=== PATIENT | female | born 1965 | race Caucasian/White ===

== ENCOUNTER 2017-04-25 07:04 | Day surgery (SDC) | payer OTHER ==
--- NOTE | 2017-04-08 06:56 | HP ---
PREOPERATIVE HISTORY AND PHYSICAL: DATE OF ADMISSION/SURGERY: 04/25/17 - [facility] DATE OF OFFICE VISIT/ENCOUNTER: 04/07/17 ATTENDING PHYSICIAN: Pilar Rodriguez MD (DICTATED BY RILEY HECK) PROCEDURE: Right wrist ganglion cyst excision. CHIEF COMPLAINT: Cyst, right wrist. HISTORY OF PRESENT ILLNESS: This is a 52-year-old female, who complains of painful mass on the volar radial aspect of her right wrist. This has been present for approximately a month. She does not recall any injury. It is quite bothersome and she has difficulty doing anything with her right hand that the cyst does not cause discomfort. She is interested in surgical intervention at this time to remove the cyst. PAST MEDICAL HISTORY: 1. Hypertension. 2. History of heart murmur. 3. Scoliosis. PAST SURGICAL HISTORY: None. CURRENT MEDICATIONS: 1. Acetaminophen extra strength 500 mg 1 tab b.i.d. p.r.n. 2. Amlodipine besylate 10 mg daily. 3. Calcium plus vitamin D daily. 4. Celebrex 200 mg 1 tab once or twice a day p.r.n. 5. Citalopram hydrobromide 20 mg daily. 6. Eloise-C. 7. Fish oil. 8. Lisinopril 5 mg daily. 9. Loratadine. 10. Multivitamin daily. 11. sodium 40 mg daily. ALLERGIES: AMOXICILLIN causes hives. FAMILY MEDICAL HISTORY: Diabetes, atrial fibrillation, COPD. 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 She denies tobacco use, recreational drug use, and alcohol use. REVIEW OF SYSTEMS: General: Negative for fevers, chills, or night sweats. No known anesthesia problems. HEENT: Negative for headache, lightheadedness, or syncopal episodes. Integumentary: Negative for abrasions, lesions, or open wounds. Cardiothoracic: Positive for hypertension. Negative for chest pain, palpitations, or edema. Pulmonary: Negative for shortness of breath with exertion, chronic cough, COPD. GI: Negative for nausea, vomiting, diarrhea, constipation, or GERD. : Negative for nocturia, urinary frequency, urgency, history of UTIs, or kidney problems. Musculoskeletal: Positive for current complaint. Positive for back pain related to scoliosis. Neurological: Negative for paresthesias, numbness, history of seizure, stroke, or epilepsy. Endocrine: Negative for diabetes or thyroid issues. Hematologic: Negative for easy bruising, anemia, excessive bleeding, or history of DVT. Infectious Disease: Negative for history of MRSA, hepatitis C, or HIV. PHYSICAL EXAMINATION GENERAL: Well-developed, well-nourished, 52-year-old female in no acute distress. VITAL SIGNS: Height 5 feet 5 inches, weight 271 pounds, pulse rate 72, blood pressure 132/90. HEENT: Normocephalic, atraumatic. Pupils are equal, round, and reactive to light and accommodation. Extraocular movements are intact. NECK: Supple. No palpable lymph nodes. Throat is clear. PULMONARY: Lungs are clear to auscultation bilaterally. No wheezes, rales, or rhonchi. CARDIOVASCULAR: Regular rate and rhythm. S1, S2. No murmurs are detected. No rubs or gallops. No edema. ABDOMEN: Positive bowel sounds. Soft, nontender. NEUROLOGIC: Alert and oriented x3. Cranial nerves II through XII are intact. Sensation is intact to light touch. PERIPHERAL VASCULAR: 2+ radial and ulnar pulses. Negative Ruslan test. MUSCULOSKELETAL: On exam of her right wrist, there is tenderness on the volar radial aspect about 1 cm in diameter. She has full range of motion of the wrist with flexion and extension. She can make a full fist. Her neurovascular function is intact and skin is intact. DIAGNOSTIC STUDIES: X-rays: AP, lateral, and oblique x-rays of the right wrist appear normal except for some CMC joint arthritis of the right thumb. ASSESSMENT: Right volar wrist ganglion. PLAN: The patient is scheduled to undergo a right wrist ganglion cyst excision with Dr. Rodriguez on 04/25/17. She will return to the office 10 to 14 days postop for followup and suture removal. A prescription for Ultracet was e-scribed to the patient's pharmacy for postoperative pain management. RILEY HECK [id number]/[facility] #: [id number] MICHELLE
[~2017-04-25 07:04] MED LIST: Buffered Lidocaine 0.9% SYRIN* 5 ML/SYR SYRINGE INTRADERM ONE
[2017-04-25] MEDS ORDERED: ceFAZolin 2 GM PREMIX(*) 0 GM/0 ML BAG IVPB ONE (07:18)
[2017-04-25] MEDS ORDERED: Buffered Lidocaine 0.9% SYRIN* 5 ML/SYR SYRINGE ONE (07:18)
[2017-04-25] MEDS ORDERED: Lidocaine 1% INJ* 10 MG/ML 30 ML SDV ONE (08:05)
[2017-04-25] MEDS ORDERED: fentaNYL* 50 MCG/ML 2 ML VIAL (100 MCG VIAL) ONE (08:18)
[2017-04-25] MEDS ORDERED: Midazolam* 1 MG/ML 2 ML VIAL (2 MG) ONE (08:23)
[2017-04-25 08:58] VITALS: BP 138/72
--- NOTE | 2017-04-25 23:37 | OP ---
CC: Pilar Rodriguez MD OPERATIVE NOTE: DATE OF OPERATION: 04/25/17 DATE OF : 69 SURGEON: Pilar oRdriguez MD CROTCH BREAKER: RILEY Melton ANESTHESIA: Local MAC. PRE-OP DIAGNOSIS: Volar wrist ganglion on the right. POST-OP DIAGNOSIS: Volar wrist ganglion on the right. OPERATIVE PROCEDURE: Removal of wrist ganglion on the right. ESTIMATED BLOOD LOSS: Zero. TOURNIQUET TIME: About 10 minutes. INDICATION FOR PROCEDURE: Korina is a 52-year-old female with a painful mass on the volar radial as pect of her right wrist. She presents for removal of the mass. Clinically, it is a ganglion cyst. DESCRIPTION OF PROCEDURE: The patient was brought to the operating room, was given a sedation anest hetic and a local infiltration with 10 cc of 1% plain lidocaine overlying the right wrist mass. Ski n of her right hand and forearm was prepped and draped in the usual sterile fashion. The hand and f orearm were exsanguinated and tourniquet elevated to 250 mmHg. A Chevron incision was made centered over the mass. We dissected bluntly through the subcutaneous tissue. The radial artery was carefu lly dissected away from the mass and the mass was traced with its stalk down to the radiocarpal join t, was removed with a small portion of the joint capsule and the edges of the capsule were cauterize d with a Bovie. The wound was irrigated and the skin edges reapproximated with 4-0 nylon suture. T he wound was dressed with Xeroform, 4x4, Webril, and an Frandy wrap. The patient tolerated the procedu re well and was brought to the recovery room in good condition. [id number]/[facility] #: [id number]
== END 2017-04-25 09:19 | disposition home or self-care (01) ==
LOC: OREAST 07:04
PROVIDERS: ATTEND Orthopaedic Surgery
DX: M67.431 Ganglion, right wrist (principal); I10 Essential (primary) hypertension; R01.1 Cardiac murmur, unspecified
CPT/HCPCS: 88304; J0690; J2001; J2250; J3010

== ENCOUNTER 2017-08-18 05:53 | Inpatient (IN) | payer OTHER ==
--- NOTE | 2017-08-01 09:54 | HP ---
HISTORY AND PHYSICAL: DATE OF ADMISSION/SURGERY: 08/18/17 DATE OF OFFICE VISIT: 07/28/17 ATTENDING PHYSICIAN: Subhash Montilla MD * (DICTATION BY RILEY STEVENSON) PROCEDURE: Right total shoulder arthroplasty. CHIEF COMPLAINT: Right shoulder pain. HISTORY OF PRESENT ILLNESS: The patient is a very pleasant 52-year-old female, who presents today for evaluation of her right shoulder pain. The patient has very specific osteoarthritic changes of the shoulder, where she has bone-on- bone in the glenohumeral joint and she has had pain for several years, which is worsening and has elected to undergo a right shoulder replacement by Dr. Montilla on 08/18/17. PAST MEDICAL HISTORY: 1. Right shoulder osteoarthritis. 2. Hypertension. 3. Scoliosis. PAST SURGICAL HISTORY: Ganglion cyst removal, 04/07/17. CURRENT MEDICATIONS: 1. Acetaminophen extra strength 500 mg 1 tablet b.i.d. p.r.n. 2. Amlodipine 10 mg daily. 3. Calcium with vitamin D supplementation daily. 4. Celebrex 200 mg 1 tablet once or twice a day p.r.n. 5. Citalopram 20 mg daily. 6. Eloise-C daily. 7. Fish oil supplementation daily. 8. Lisinopril 5 mg p.o. daily. 9. Loratadine. 10. Daily multivitamin. 11. Propranolol 40 mg daily. ALLERGIES: AMOXICILLIN, which causes hives. FAMILY MEDICAL HISTORY: Mother of diabetes, atrial fibrillation, COPD and heart murmur. 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 She denies tobacco use, recreational drug use, and alcohol use. REVIEW OF SYSTEMS: General: No fevers, chills, or night sweats. No difficulty with anesthesia. HEENT: Negative for headache, lightheadedness, or syncopal episodes. Integumentary: Negative for abrasions, lesions, open wounds , or sores. Cardiothoracic: Positive for hypertension. Negative for chest pain , palpitations, or edema. No history of heart murmur. Pulmonary: Negative for shortness of breath, chronic cough, or COPD. GI: Negative for nausea, vomiting, constipation, diarrhea, and positive for GERD. : Negative for nocturia, urinary frequency, urgency, history of UTIs, or kidney problems. Musculoskeletal: Positive for right shoulder pain. Positive for back pain, chronic, due to scoliosis. Positive for left foot pain. Neurological: Negative for paresthesias, numbness, history of seizure, stroke, or epilepsy. Endocrine: Negative for diabetes or thyroid issues. Hematologic: Negative for easy bruising, anemia, excessive bleeding. No history of DVT or bleeding disorders. Infectious Disease: Negative for MRSA, hepatitis C, or HIV. PHYSICAL EXAMINATION GENERAL: Well appearing, in no acute distress. Alert and oriented. VITAL SIGNS: Height 55 inches, weight 288 pounds, pulse 76, blood pressure 124/ 84, respirations 20, temperature 97.8, BMI 47.9. HEENT: Normocephalic, atraumatic. EOMI. NECK: Supple, full range of motion. PULMONARY: Lungs clear to auscultation bilaterally. No crackles, rhonchi or wheezes. CARDIOVASCULAR: Regular rate and rhythm. Normal Sl, S2. No murmurs, gallops or rubs. ABDOMEN: Soft, nontender, nondistended. NEUROLOGIC: Alert and oriented. Cranial nerves grossly intact. Sensation intact to light touch bilateral lower and upper extremities. PERIPHERAL VASCULAR: 2+ radial and ulnar pulses. MUSCULOSKELETAL: Tenderness with palpation over the right shoulder. Please see Dr. Montilla's dictated note for full shoulder examination. DIAGNOSTIC STUDIES: X-rays of the right shoulder were taken today, which showed the patient is [id number] without significant changes from her x-rays 2 years ago. IMPRESSION: Right should arthritis. PLAN: The patient is scheduled to undergo a right total shoulder replacement by Dr. Montilla on 08/18/17. She will return postoperatively in approximately 2 weeks for evaluation. The patient has not taken narcotics in the past, so no scripts were sent ahead of time for the patient. She will undergo preoperative testing with her primary care physician as well as PAT testing at the hospital. She has no other questions or concerns; however, will call us if any do arise. RILEY STEVENSON [id number]/[facility] #: [id number] [facility] INSANEInessa
[2017-08-18] MEDS ORDERED: Buffered Lidocaine 0.9% SYRIN* 5 ML/SYR SYRINGE INTRADERM ONE (06:00)
[2017-08-18] MEDS ORDERED: Gabapentin CAP(*) 300 MG PO ONE (06:00)
[2017-08-18] MEDS ORDERED: Famotidine IV* 10 MG/ML 2 ML (20 mg) IV ONE (06:00)
[2017-08-18] MEDS ORDERED: Gabapentin CAP(*) 300 MG ONE (06:01)
[2017-08-18] MEDS ORDERED: Clindamycin 900 MG IVPREMIX(* 900 MG/50 ML SDV IV ONE (06:01)
[2017-08-18] MEDS ORDERED: Famotidine IV* 10 MG/ML 2 ML (20 mg) ONE (06:01)
[2017-08-18] MEDS ORDERED: Buffered Lidocaine 0.9% SYRIN* 5 ML/SYR SYRINGE ONE (06:01)
[2017-08-18] MEDS ORDERED: Bupivacaine 0.5% SDV PF* 30 ML VIAL ONE (07:11)
[2017-08-18] MEDS ORDERED: Midazolam* 1 MG/ML 5 ML VIAL (5 MG) ONE (07:18)
[2017-08-18] MEDS ORDERED: fentaNYL* 50 MCG/ML 2 ML VIAL (100 MCG VIAL) ONE ×2 (07:18→08:30)
[2017-08-18] MEDS ORDERED: Oxymetazoline 0.05% NASAL SPR* 15 ML BTL ONE (07:41)
[2017-08-18] MEDS ORDERED: KETAMINE HCL* 50 MG/ML 10 ML VIAL ONE (08:20)
[2017-08-18] MEDS ORDERED: Ketorolac INJ* 30 MG/ML 1 ML VIAL ONE (08:33)
[2017-08-18] MEDS ORDERED: Propofol* 10 MG/ML 20 ML BTL IV PUSH ONE (08:33)
[2017-08-18] MEDS ORDERED: DiMENhydriNATE IV* 50 MG/ML VIAL ONE (08:33)
[2017-08-18] MEDS ORDERED: Ondansetron INJ* 2 MG/ML VIAL ONE (08:33)
[2017-08-18] MEDS ORDERED: ROPIVACAINE 5 MG/ML 30 ML BTL (0.5%) ONE (08:33)
[2017-08-18] MEDS ORDERED: Glycopyrrolate IV* 0.2 MG/ML 1 ML VIAL ONE (08:33)
[2017-08-18] MEDS ORDERED: Succinylcholine* 20 MG/ML 10 ML VIAL ONE (08:33)
[2017-08-18] MEDS ORDERED: Lidocaine 2% PF * 5 ML VIAL ONE (08:33)
[2017-08-18] MEDS ORDERED: Dexamethasone IV* 4 MG/ML 1 ML (4 MG) ONE (08:33)
[2017-08-18] MEDS ORDERED: Bupivacaine 0.25% EPI 200,000* 30 ML SDV ONE (08:35)
[2017-08-18] MEDS ORDERED: Levalbuterol HFA INHALER* 1 PUFF MDI ONE (08:36)
[2017-08-18] MEDS ORDERED: HYDROmorphone INJ* 1 MG/ML CARPUJECT SYRINGE IV PRN (09:08)
[2017-08-18] MEDS ORDERED: oxyCODONE TAB* 5 MG TAB PO PRN ×2 (09:08→11:19)
[2017-08-18] MEDS ORDERED: Levalbuterol 0.63MG/3ML NEB* UNIT OF USE INH PRN (09:08)
[2017-08-18] MEDS ORDERED: DiMENhydriNATE IV* 50 MG/ML VIAL IV PUSH PRN (09:08)
[2017-08-18] MEDS ORDERED: Acetaminophen TAB* 325 MG PO PRN (09:08)
[2017-08-18] MEDS ORDERED: Gabapentin CAP(*) 100 MG PO ONE (09:10)
[2017-08-18] MEDS ORDERED: Gabapentin CAP(*) 100 MG ONE (10:55)
[2017-08-18] MEDS ORDERED: traZODone TAB* 50 MG TAB PO PRN (11:19)
[2017-08-18] MEDS ORDERED: diPHENhydraMINE IV* 50 MG/ML 1 ml VIAL (BENADRYL) IV PRN (11:19)
[2017-08-18] MEDS ORDERED: oxyCODONE/Acetamin 5/325 MG* TAB PO PRN (11:19)
[2017-08-18] MEDS ORDERED: Ondansetron INJ* 2 MG/ML VIAL IV PRN (11:19)
--- NOTE | 2017-08-18 13:02 | RAD ---
INDICATION: Right shoulder arthroplasty COMPARISON: July 23, 2017 TECHNIQUE: AP and axillary views were obtained. FINDINGS: There is right shoulder arthroplasty. Both humeral and scapular components appear well seated. There are soft tissue changes compatible with the recent surgery. There is a cooling jacket. IMPRESSION: POSTOPERATIVE RIGHT SHOULDER ARTHROPLASTY
[2017-08-18] MEDS: Clindamycin 600 MG IVPREMIX(* 600 MG/50 ML SDV IV SCH ×2 (16:55→23:21)
[2017-08-18] MEDS: Heparin VIAL(*) 5000 UNITS/ML VIAL (FIVE THOUSAND) SUBCUT SCH (20:05)
[2017-08-18] MEDS: Docusate CAP* 100 MG PO SCH (20:05)
[2017-08-18] MEDS ORDERED: celeCOXIB CAP* 200 MG PO SCH (21:00)
[2017-08-18] MEDS: oxyCODONE/Acetamin 5/325 MG* TAB PO PRN (22:31)
[2017-08-19] MEDS: Morphine INJ* 2 MG/ML 1 ML SYRINGE (TWO MG - NEW SYRINGE VERSION) IV PRN ×3 (00:21→07:29)
--- NOTE | 2017-08-19 01:47 | OP ---
DATE OF OPERATION: 08/18/17 - ROOM #348 DATE OF : 69 SURGEON: Subhash Montilla MD ASSISTANTS: Stephie Rosas RPA and RILEY Gray ANESTHESIOLOGIST: Lyn Flynn MD ANESTHESIA: General and regional. PRE-OP DIAGNOSIS: Osteoarthritis, right shoulder. POST-OP DIAGNOSIS: Osteoarthritis, right shoulder. OPERATIVE PROCEDURE: Right total shoulder arthroplasty. ESTIMATED BLOOD LOSS: 150 cc. COMPLICATIONS: None. HARDWARE: OCAMPO 17 stem with medium trauma body, small reduced glenoid with liner, 44-mm humeral head with 2-mm eccentric adapter. SUMMARY: Mrs. Hays is a 52-year-old female who has had troubles with her right shoulder for many years now. It initially had been lower level and well controlled with anti-inflammatories the occasional injection, but over a year ago it had come to the point where we have talked about a shoulder replacement. 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 I discussed with her a total shoulder arthroplasty should work well to decrease her pain and improve her function. Risks of surgery such as neurovascular injury, scar formation, stiffness, continued pain, instability and hardware failure were some of the risks discussed. She had been declared medically optimized and wished to proceed. DESCRIPTION OF PROCEDURE: The patient had a scalene block placed in the holding area and came back to the OR. General endotracheal anesthesia was then established. She was then positioned on the edge of the table, so that her right arm could come over and I thought I would have good access to the humeral shaft. Several folded towels have been placed under the central portion of the bed, so that she would lay nicely on this and help let the shoulder rollback some. She was then sat up in the beach chair position and care was taken to make sure that her knees were nicely bent and that her left elbow cubital tunnel was free and clear of any pressure. Stephie Rosas was present from the start of the case with positioning and was relieved intra-operatively by Cora Harrell. The case could not have been done without an credit control assistant. Right shoulder area was prepped and then draped. Skin over the incisional area was infiltrated using 0.25% Marcaine with epinephrine and incision was made beginning superior to the coracoid at about the level of clavicle and came downwards towards the humeral shaft. Incision was carried down through the skin and subcutaneous fat. Small bleeders encountered were ligated using electrocautery. Fat was then bluntly dissected using a Varinder and fascia over the deltoid was exposed. Fat was cleared from a little bit medial to the incision and little bit lateral and at the very base, I had seen the cephalic vein. I then traced this upwards, dividing the deltoid away from the cephalic vein, so I could leave the cephalic vein medially and with blunt dissection, I was able to come under and exploit the deltopectoral interval. With coming upwards, fascia over the coracobrachialis was easily seen and fascia was taken down. Using a 2-0 Vicryl, the circumflex vessels were tied off and then ligated. With blunt dissection, the fascia was freed a little bit from the edge of the coracobrachialis, so that a narrow Staley could then be placed to get a little bit more exposure. With motion, it could be seen where the biceps tendon came up and dove into the shoulder and the rotator cuff was right along the side there. Osteotome was used to take off a flake of bone right on that medial side of the biceps tendon to allow for improved later repair. Rotator interval was developed over the top, so that the cuff could be peeled back and similarly was peeled inferiorly. Capsule was then released and quite a bit of clear joint fluid was encountered. With rotation and extension, head was then easily dislocated. She had complete wear of the humeral head with significant osteophyte formation. Using the awl, center of the head was opened and the intramedullary reamers were then placed. She had templated for a 14 to 15 and I started with a 14. She had easy play with the 14 and even the 15. The 16 seated easily, but the 17 had a nice workers compensation adjuster and I was very careful with it. Now we were go with assembled and adjusted it until the alignment axel was parallel with her arm and the cutting guide was then pinned into place. Humeral head was then resected. Nice cut was obtained and this was handed back , so that it could be measured against the trial heads. Cutting guide was removed and the humeral head protector was placed. Coming with the skin along the posterior glenoid and dropping the humeral head posteriorly, nice exposure of the glenoid was obtained. Similarly, pickle fork was then placed anteriorly and part of the labrum was taken down sharply. Biceps was delivered and it could be seen where the attachment was in good condition, but more proximally right at the curve, the biceps increased to more than twice its width with its degenerative changes. Biceps would be eventually cut and tenodesed using #1 Ethibond sutures. Coming back to the glenoid, marker was used to draw a perpendicular line and then a longitudinal line, so that the center could be seen. Using the guide, K-wire was placed right in the center and I liked the positioning. Using the sizer, I thought the small fit very nicely. The standard by templating completely filled the top to bottom, so I thought going with the small would be better. Reamer was then used to take down a little bit anteriorly as she did have a little retroversion from her posterior wear. Nice subchondral bone was exposed. Continuing with the K-wire as a guide, the short drill was then used for the central peg and guidewire was then removed. Glenoid was then impacted into place. Nice fit was obtained. Superior and inferior screw was placed and a wonderful bite was obtained with both screws. Glenoid was copiously pulse lavaged and the polyethylene was then snapped into place. Attention was returned to the proximal humerus. Cap was removed and trial stem was placed. Trial stems, they just a little bit proud and then she was trialed with a 44-mm head. She was reduced and now could easily externally rotate pass 90 degrees, come upwards and she had very good stability. Similarly, I was trying to shift the humeral head, I could get about 50% posteriorly, anteriorly as well a bit inferiorly as well. She seemed to be nice and stable. Trial instrumentation was removed and the stem was called for. Stem was assembled on the back table and then impacted into place. I thought we were sitting flush according to the handle, but when the head was placed, there was just about a millimeter of gap that could be seen. Considering though how snug she was with the 17, I was not drilled, which I had force the stem further, so this was allowed to remain. Eccentric head was also then impacted into place and she appeared to have perfect coverage of the humeral head. She had a same wonderful motion and stability. Subscapularis was then repaired to where I had taken the flake off of the lesser tuberosity. Portion of the biceps that I folded back down was also used as I pulled up the sutures, as I pushed the Ethibond needles through her bone. They were between the pulled up through the biceps and then I came back down into the biceps, so that there would be an additional amount of soft tissue that would be healing in. Nice repair was obtained. With the repair, she now came to about 60 degrees with the elbow tucked at her side, but this was much better than the 0 that she had preoperatively. With the arm abducted to 90 degrees, I could easily bring it to 90 degrees of external rotation and 90 degrees of internal rotation, she seems stable throughout. Wound was again copiously pulse lavaged. Cephalic vein was buried under the deltoid and the most inferior portion was allowed to remain to allow for future reference and just in case this was needed. Subcutaneous tissues were reapproximated with 2-0 Vicryl. Skin was closed using a running Monocryl PDS. Sterile dressing, Cryo/Cuff and a sling roll applied in the OR. The patient then was extubated in the OR and was stable on transfer to the recovery room. [id number]/[facility] #: [id number] MICHELLE
[2017-08-19] MEDS ORDERED: Ketorolac INJ* 15 MG/ML 1 ML VIAL IV PUSH PRN (02:38)
[2017-08-19] MEDS ORDERED: oxyCODONE TAB* 5 MG TAB PO ONE (03:00)
[2017-08-19 07:04] LABS: Hematocrit 35 % (35-47); Hemoglobin 12.2 g/dl (12.0-16.0)
[2017-08-19 07:17] LABS: BUN/Creatinine Ratio 16.9 (8-20); Calcium 7.8 mg/dL (8.6-10.3); EGFR Non-African American 79.3 (>60); Potassium 3.9 mmol/L (3.5-5.0)
[2017-08-19] MEDS: Clindamycin 600 MG IVPREMIX(* 600 MG/50 ML SDV IV SCH (07:28)
[2017-08-19] MEDS: oxyCODONE/Acetamin 5/325 MG* TAB PO PRN ×2 (07:28→11:51)
[2017-08-19] MEDS ORDERED: Omeprazole CAP* 20 MG PO SCH (07:30)
[2017-08-19] MEDS: Heparin VIAL(*) 5000 UNITS/ML VIAL (FIVE THOUSAND) SUBCUT SCH (07:37)
[2017-08-19] MEDS: Docusate CAP* 100 MG PO SCH (07:37)
--- NOTE | 2017-08-19 08:47 | PN ---
Progress Note - Progress Note Date of Service: 08/18/17 SOAP: Subjective: resting comfortably; pain controlled with PO meds, no complaints Objective: Vital Signs Temp Pulse Resp BP Pulse Ox 98.2 F 58 16 111/56 95 08/19/17 03:18 08/19/17 03:18 08/19/17 07:29 08/19/17 03:18 08/19/17 03:18 Laboratory Last Values Hgb 12.2 g/dl (12.0-16.0) 08/19/17 06:46 Hct 35 % (35-47) 08/19/17 06:46 Sodium 131 mmol/L (133-145) L 08/19/17 06:46 Potassium 3.9 mmol/L (3.5-5.0) 08/19/17 06:46 Chloride 98 mmol/L (101-111) L 08/19/17 06:46 Carbon Dioxide 26 mmol/L (22-32) 08/19/17 06:46 Anion Gap 7 mmol/L (2-11) 08/19/17 06:46 BUN 13 mg/dL (6-24) 08/19/17 06:46 Creatinine 0.77 mg/dL (0.51-0.95) 08/19/17 06:46 Est GFR ( Amer) 102.0 (>60) 08/19/17 06:46 Est GFR (Non-Af Amer) 79.3 (>60) 08/19/17 06:46 BUN/Creatinine Ratio 16.9 (8-20) 08/19/17 06:46 Glucose 122 mg/dL (70-100) H 08/19/17 06:46 Calcium 7.8 mg/dL (8.6-10.3) L 08/19/17 06:46 incision: c/d/i PE: NVI Assessment: s/p right total shoulder arthroplasty Plan: 1) PT/OT- passive ROM only RUE; do not exceed 90 degrees abduction/forward flexion, 30 degrees external rotation; full ROM elbow/wrist/hand 2) Heparin while in hospital for DVT prophylaxis; will go home on ASA 325mg QD 3) Abx for 24 hours post-op 4) likely home this afternoon; follow-up with Eladia 2-3 weeks
[2017-08-19] MEDS ORDERED: OMEGA-3 FATTY ACIDS (NF) 1,000 MG CAP PO SCH (09:00)
[2017-08-19] MEDS ORDERED: BIOFLAVONOID PRODUCTS PO SCH (09:00)
[2017-08-19] MEDS ORDERED: Cetirizine* 10 MG TAB PO SCH (09:00)
[2017-08-19] MEDS ORDERED: amLODIPine TAB* 5 MG PO SCH (09:00)
[2017-08-19] MEDS ORDERED: Citalopram TAB* 20 MG PO SCH (09:00)
[2017-08-19] MEDS ORDERED: Lisinopril TAB* 5 MG PO SCH (09:00)
[2017-08-19] MEDS ORDERED: Aspirin TAB* 325 MG PO SCH (09:00)
[2017-08-19] MEDS ORDERED: METHYLSULFONYLMETHANE PO SCH (09:00)
[2017-08-19] MEDS ORDERED: Cholecalciferol TAB* 400 UNIT PO SCH (09:00)
[2017-08-19] MEDS ORDERED: oxyCODONE SR TAB(*) 10 MG TAB.SR PO SCH ×2 (10:30→21:00)
[2017-08-19 11:38] VITALS: BP 111/68
--- NOTE | 2017-08-19 22:42 | DS ---
DISCHARGE SUMMARY: DATE OF ADMISSION: 08/18/17 DATE OF DISCHARGE: 08/19/17 SURGEON: Subhash Montilla MD * (DICTATED BY RILEY HIRSCH) PRINCIPAL DIAGNOSIS: Osteoarthritis, right shoulder. DISCHARGE DIAGNOSIS: Osteoarthritis, right shoulder. HOSPITAL COURSE: Ms. Hays is a 52-year-old female who was admitted to the hospital electively on 08/18/17 and underwent a right total shoulder arthroplasty. She tolerated the procedure well with no complications. Postoperatively, she was placed on heparin for DVT prophylaxis. On postop day 1 , her H and H was 12 and 35. Her vital signs were stable. She was ambulating well. Her pain was controlled with p.o. medications and she was discharged home. DISCHARGE MEDICATIONS: 1. OxyContin 10 mg twice daily. 2. Percocet 5/325 mg 1 to 2 tabs every 4 to 6 hours. 3. Aspirin 325 once daily for 4 weeks. 4. Norvasc 10 mg daily. 5. Zyrtec 5 mg every morning. 6. Vitamin D. 7. Celexa 20 mg every day. 8. Colace 100 mg twice a day as needed. 9. Lisinopril 5 mg every day. 10. Omeprazole 20 mg daily. PHYSICAL EXAM UPON DISCHARGE: The incision is clean and dry. Her right shoulder was in a sling. She is neurovascularly intact. She was able to demonstrate thumbs up, cross finger and . She had intact sensation overall in the fingers and 2+ distal radius pulses. She is ambulating well. DISCHARGE INSTRUCTIONS: She is discharged home in stable condition. She was given a prescription for OxyContin twice a day for 1 week, Percocet 5/325 every 4 to 6 hours as needed and aspirin 325 mg to take daily for DVT prophylaxis. These medications were sent to her pharmacy. She will follow with Dr. Montilla in 2 to 3 weeks. She can remove the dressing of the right shoulder on Friday. At that time, she can start showering. She cannot submerge the shoulder in water. She is nonweightbearing, right upper extremity. No active range of motion of the right shoulder. She should remain in the sling at all times and come out of the sling three times daily for pendulum exercises and range of motion of the elbow, wrist and hand only. We will have her make an appointment with Dr. Montilla in 2 to 3 weeks. He will likely start outpatient physical therapy at that time. RILEY HIRSCH [id number]/[facility] #: [id number] [facility]ALTHInessa
== END 2017-08-19 12:20 | disposition home or self-care (01) | DRG 483 ==
LOC: INTOOBSV 05:53 → AA 05:53 → OBSVTOIN 11:40 → SSU 12:46
PROVIDERS: ADMIT Orthopaedic Surgery; ATTEND Orthopaedic Surgery
PROC: 0RRJ0JZ Replacement of Right Shoulder Joint with Synthetic Substitute, Open Approach (ICD-10-PCS; principal; 2017-08-18 07:30)
DX: M19.011 Primary osteoarthritis, right shoulder (principal); Z68.42 Body mass index [BMI] 45.0-49.9, adult; I10 Essential (primary) hypertension; E66.01 Morbid (severe) obesity due to excess calories; M41.9 Scoliosis, unspecified; Z79.82 Long term (current) use of aspirin; Z88.0 Allergy status to penicillin; Z83.3 Family history of diabetes mellitus; Z82.49 Family history of ischemic heart disease and other diseases of the circulatory system; K21.9 Gastro-esophageal reflux disease without esophagitis; F41.9 Anxiety disorder, unspecified
CPT/HCPCS: 36415; 80048; 85014; 85018; 94760; A9270-GY; C1713; C1776; G8987-GO-CJ; G8988-GO-CI; G8989-GO-CJ; J0330; J1100; J1240; J1644; J1885; J2250; J2270; J2405; J2704; J2795; J3010

== ENCOUNTER 2019-07-26 08:54 | Inpatient (IN) | payer OTHER ==
[~2019-07-26 08:54] MED LIST changes: -Buffered Lidocaine 0.9% SYRIN* 5 ML/SYR SYRINGE INTRADERM ONE; +Buffered Lidocaine 1% SYRIN* 1 ML/SYRINGE INTRADERM ONE; +Dexamethasone IV* 4 MG/ML 1 ML (4 MG) IV SLOW PU ONE; +Lactated Ringers 1000 ML Bag* 1,000 ML IV SCH; +Tranexamic Acid 1,000 MG in NS 0.9% 50 ML* (outpatient use) IV SCH
--- OUTSIDE RECORDS SUMMARY | 2019-07-26 08:58 | XMS REPORT | Continuity of Care Document ---
:1965 External Reference #:[id number] Author Name MANN Lord (transmitted by agent of provider Danni Navas) Address [address] [place] [id number] Care Team Providers Name Role Phone Layne Eduardo N.P. 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 Onset: Social History Type Date Description Comments Sex Unknown ETOH Use Never used alcohol Tobacco Use Start: Unknown Patient has never smoked Smoking Status Reviewed: 07/15/19 Patient has never smoked Exercise Type/Frequency Does not exercise Allergies, Adverse Reactions, Alerts Active Allergies Reaction Severity Comments Date Amoxicillin 01/11/2015 Medications Active Medications SIG Qnty Indications Ordering Date Provider Hydrocodone 1-2 tabs by 28tabs Giovanny Wallace, 07/05/2019 Bitartrate/Acetaminoph mouth every 6 MD en hours as needed 5-325mg Tablets pain Gabapentin 3 capsules by 90caps M19.011 Subhash Montilla, 12/09/2018 100mg Capsules mouth qhs. M.D. decrease by one if too sedating, increase to 4 if no effect Clindamycin HCL two capsules by 6caps Z96.611 Subhash Montilla, 11/26/2017 300mg mouth one hour M.D. Capsules before dental work Aspirin Ec take 1 tab by 30tabs Subhash Montilla, 08/19/2017 325mg Tablets mouth once a day M.D. DR for 4 weeks Celecoxib take one capsule 180caps Subhash Montilla, 07/03/2015 200mg Capsules by mouth once or M.D. twice a day -max. daily dose of 2 capsules in 24 hours- Amlodipine Besylate 1 by mouth every Unknown 10mg day Tablets Citalopram 1 by mouth every Unknown Hydrobromide day 20mg Tablets Eloise-C Unknown Calcium + D every day Unknown [id number] Chewtabs Multi Vitamin Daily Unknown Fish Oil Unknown Acetaminophen Extra 1 tab by mouth Unknown Strength twice a day as 500mg Tablets needed Loratadine Unknown Pantoprazole Sodium 1 by mouth every Unknown 40mg day Solution Rec Lisinopril 1 by mouth every Unknown 5mg Tablets day Medications Administered in Office Medication SIG Qnty Indications Ordering Provider Date Depomedrol 40MG BRIANA Rodriguez 11/23/2015 Injection Immunizations Description No Information Available Vital Signs Date Vital Result Comment 07/15/2019 9:21am Height 65 inches 5'5" Weight 240.00 lb BP Systolic 120 mmHg BP Diastolic 82 mmHg Respiratory Rate 16 /min Body Temperature 97.8 F Pain Level 3 BMI (Body Mass Index) 39.9 kg/m2 06/23/2019 1:30pm Height 65 inches 5'5" Weight 240.00 lb Heart Rate 72 /min BP Systolic 132 mmHg BP Diastolic 78 mmHg Body Temperature 99.4 F Pain Level 4 BMI (Body Mass Index) 39.9 kg/m2 Results Test Date Facility Test Result H/L Range Note Laboratory test 07/05/2019 [facility] SEE RESULT [address] Pathology BELOW [place], [place] [id number] [phone] 1 SEE RESULT BELOW Name: DIMITRI BECERRIL : [address]: Subhash Montilla MD Acct: [id number] Unit: [id number] AGE: 54 Location: OR Re07/05/19 SEX: F Status: REG [facility] SPEC: [id number] CRISTI: 07/05/19- SUBM DR: Subhash Montilla MD REQ: [id number] RECD: 07/05/19 STATUS: SOUT _ ORDERED: LEVEL 4 FINAL DIAGNOSIS Shoulder, right, excision: -- Benign synovial tissue with exogenous pigment deposition. PRE-OPERATIVE DIAGNOSIS Right shoulder rotator cuff repair GROSS DESCRIPTION The specimen is received in formalin labeled, Black Scar Total Shoulder ( Metallosis), and consists of two black-roberts to cordova-white irregular fibrous tissue fragments aggregating to 0.5 x 0.3 x 0.1 cm which are submitted entirely in one cassette. Signed by and Reported on: [place] Rojas MD 07/06/19 1032 END OF REPORT DEPARTMENT OF PATHOLOGY, [address], [place], [place] [address] Ivan Kovacs M.D. Director [facility] # [id number] Procedures Date Code Description Status 07/05/2019 71986 Arthroscopy Shoulder Debridement Extensive Completed 07/05/2019 24506 Arthroscopy Shoulder Debridement Extensive Completed Medical Devices Description No Information Available Encounters Type Date Location Provider Dx Diagnosis Office Visit 06/23/2019 Joanne Montilla, S46.011D Strain of 1:30p [facility] M.D. musc/tend the rotator cuff of right shoulder, subs Office Visit 05/26/2019 Orthopedic Subhash Montilla, Z96.611 Presence of right 1:00p [facility] M.D. artificial shoulder joint S46.011D Strain of musc/tend the rotator cuff of right shoulder, subs Z47.1 Aftercare following joint replacement surgery Office Visit 05/12/2019 1:00p Joanne Cullen Z96.611 Presence of [facility] Diogo Montilla right artificial [facility] shoulder joint M79.2 Neuralgia and neuritis, unspecified Z47.1 Aftercare following joint replacement surgery Assessments Date Code Description Provider 07/15/2019 S46.011D Strain of muscle(s) and tendon(s) MANN Lord of the rotator cuff of right shoulder, subsequent encounter 07/15/2019 Z96.611 Presence of right artificial Nancy Morgan RPA-Daniel shoulder joint 07/05/2019 S46.011D Strain of muscle(s) and tendon(s) MANN Zayas of the rotator cuff of right shoulder, subsequent encounter 07/05/2019 S46.011D Strain of muscle(s) and tendon(s) Subhash Montilla M.D. of the rotator cuff of right shoulder, subsequent encounter 07/05/2019 Z96.611 Presence of right artificial DEBBI Zayas shoulder joint 07/05/2019 Z96.611 Presence of right artificial Subhash Montilla M.D. shoulder joint 06/23/2019 S46.011D Strain of muscle(s) and tendon(s) Subhash Montilla M.D. of the rotator cuff of right shoulder, subsequent encounter 05/26/2019 Z96.611 Presence of right artificial Subhash Montilla M.D. shoulder joint 05/26/2019 S46.011D Strain of muscle(s) and tendon(s) Subhash Montilla M.D. of the rotator cuff of rig 05/26/2019 Z47.1 Aftercare following joint Subhash Montilla M.D. replacement surgery 05/12/2019 Z96.611 Presence of right artificial Subhash Montilla M.D. shoulder joint 05/12/2019 M79.2 Neuralgia and neuritis, unspecified Subhash Montilla M.D. 05/12/2019 Z47.1 Aftercare following joint Subhash Montilla M.D. replacement surgery Plan of Treatment No Information Available Functional Status Description No Information Available Mental Status Description No Information Available Referrals Description No Information Available
[2019-07-26] MEDS ORDERED: Dexamethasone IV* 4 MG/ML 1 ML (4 MG) ONE (09:31)
[2019-07-26] MEDS ORDERED: Clindamycin 900 MG/D5W BAG(*) 900 MG/50 ML BAG IVPB ONE (09:31)
[2019-07-26] MEDS ORDERED: ROPIVACAINE 5 MG/ML 30 ML BTL (0.5%) ONE (10:13)
[2019-07-26] MEDS ORDERED: fentaNYL* 50 MCG/ML 2 ML VIAL (100 MCG VIAL) ONE (10:27)
[2019-07-26] MEDS ORDERED: Midazolam* 1 MG/ML 5 ML VIAL (5 MG) ONE (10:27)
[2019-07-26] MEDS ORDERED: Atracurium* 10 MG/ML 10 ML VIAL ONE (10:27)
[2019-07-26] MEDS ORDERED: Propofol* 10 MG/ML 20 ML BTL ONE (10:28)
[2019-07-26] MEDS ORDERED: Ondansetron INJ* 2 MG/ML VIAL ONE (10:28)
[2019-07-26] MEDS ORDERED: Bupivacaine 0.5% W/EPI SDV* 10 ML VIAL INJ ONE (11:23)
[2019-07-26] MEDS ORDERED: Midazolam* 1 MG/ML 2 ML VIAL (2 MG) ONE ×2 (11:51→12:30)
[2019-07-26] MEDS ORDERED: Ondansetron INJ* 2 MG/ML VIAL IV PRN ×2 (12:37→15:15)
[2019-07-26] MEDS ORDERED: HYDROmorphone INJ1* 1 MG/ML SYRINGE IV PRN (12:37)
[2019-07-26] MEDS ORDERED: Naloxone* 0.4 MG/ML 1 ML VIAL IV PRN (12:37)
[2019-07-26] MEDS ORDERED: DiMENhydriNATE IV* 50 MG/ML VIAL IV PUSH PRN (12:37)
[2019-07-26] MEDS ORDERED: fentaNYL* 50 MCG/ML 2 ML VIAL (100 MCG VIAL) IV PRN (12:37)
[2019-07-26] MEDS ORDERED: Scopolamine 1.5 mg* PATCH TRANSDERM PRN (12:37)
[2019-07-26] MEDS ORDERED: Phenylephrine 10 MG/ML VIAL* 1 ML VIAL ONE (13:09)
[2019-07-26] MEDS ORDERED: Magnesium Hydroxide LIQ* 30 ML UDC PO PRN (15:15)
[2019-07-26] MEDS ORDERED: diPHENhydraMINE IV* 50 MG/ML 1 ml VIAL (BENADRYL) IV PRN (15:15)
[2019-07-26] MEDS ORDERED: diPHENhydraMINE PO* 25 MG PO PRN (15:15)
[2019-07-26] MEDS ORDERED: Morphine INJ* 2 MG/ML 1 ML SYRINGE (TWO MG - NEW SYRINGE VERSION) IV PRN (15:15)
[2019-07-26] MEDS ORDERED: Cyclobenzaprine TAB* 10 MG PO PRN (15:15)
[2019-07-26] MEDS ORDERED: Ondansetron ODT TAB* 4 MG PO PRN (15:15)
[2019-07-26] MEDS ORDERED: oxyCODONE/Acetamin 5/325 MG* TAB ONE (15:35)
[2019-07-26] MEDS: oxyCODONE/Acetamin 5/325 MG* TAB PO PRN ×2 (15:53→20:44)
[2019-07-26] MEDS ORDERED: Lactated Ringers 1000 ML Bag* 1,000 ML IV SCH (16:00)
[2019-07-26] MEDS ORDERED: Zolpidem TAB* 5 MG PO PRN (17:50)
[2019-07-26] MEDS ORDERED: Atorvastatin* 20 MG TAB PO SCH (18:00)
[2019-07-26] MEDS: Acetaminophen TAB* 325 MG PO SCH (18:36)
[2019-07-26] MEDS: Docusate CAP* 100 MG PO SCH (19:56)
[2019-07-26] MEDS: celeCOXIB CAP* 200 MG PO SCH (19:56)
[2019-07-26] MEDS: Clindamycin 600 MG IVPREMIX(* 600 MG/50 ML SDV IV SCH (20:01)
[2019-07-26] MEDS: Magnesium Hydroxide LIQ* 30 ML UDC PO SCH (20:42)
--- NOTE | 2019-07-26 20:51 | OP ---
DATE OF OPERATION: 07/26/19 - ROOM #339 DATE OF : [birth year] SURGEON: Subhash Montilla MD COMPOSITE TECHNICIAN: Zayda Juarez RPA ANESTHESIA: Regional and general. 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 POST-OP DIAGNOSIS: Failed right total shoulder arthroplasty. OPERATIVE PROCEDURE: Revision right total shoulder arthroplasty. ESTIMATED BLOOD LOSS: 150 cc. COMPLICATIONS: None. HARDWARE: Parts changed to a Meyers 36 mm eccentric glenosphere, small humeral body and +3 polyethylene. INDICATIONS: Ms. Hays is a 54-year-old female who had undergone a right total shoulder arthroplasty in August 2017. She had done well with excellent pain relief and improvement in function except for regaining full overhead function and motion. She was pain-free and stable and doing all regular activities. She presented to the office at the end of May with what appeared to be instability to the right shoulder. Her humeral head was also subluxated superiorly indicative of a supraspinatus tear. Initially, there was a history of 2 falls with pain afterwards, so I thought she did have a rotator cuff tear and an ultrasound did show damage to her rotator cuff. Two weeks ago, she underwent shoulder arthroscopy, but at the time of arthroscopy, the shoulder itself was grossly unstable and I could see where she had very specific polyethylene wear and the wear had gone all the way down to the metal component on the edge of glenoid component Because of this, I just debrided to get rid of some of metallosis, which was diffuse within her tissues. I discussed with Ms. Hays and her that conversion of the regular total shoulder arthroplasty to a reverse total shoulder arthroplasty would be our next best step. Postoperatively, we obtained a CAT scan, which showed how the humeral head was articulating on the underside of the acromion and how she was literally out of joint. I had reviewed the CAT scan with them and discussed with them that if at the time of surgery she was still unstable, we would need to revise her glenoid component as well. Other risks of surgery such as infection, scar formation, stiffness, blood clots, as well as instability down the road were also discussed and they had wished to proceed. DESCRIPTION OF PROCEDURE: The patient had a block placed in the holding area and was brought back to the OR. General anesthesia was established. Table unfortunately was in the reversed position and stretcher was brought back in and she was transferred back to the stretcher. Table was turned around, properly assembled and she was transferred back to the table. She was then sat up in a beach chair position. Care was taken to make sure that her left arm was nicely abducted on the airplane board and that she was properly padded. Right shoulder area was prepped and then draped. Incision was made directly over her old scar and carried down through the skin and subcutaneous fat. Small bleeders encountered were ligated using electrocautery. Deltoid and presumably deltopectoral interval was found as I just gently dissected downward and fell towards the anterior aspect of the humerus. It was difficult to tell the difference between short head of the biceps/coracobrachialis, but I did not push too much except to trying to find that edge so I could make sure I has subscapularis. With external rotation, I could easily palpate the bicipital groove and coming 5 mm medial to that performed a release of her subscap. She still had good tendon on the subscap and with coming through there I came through all of my old Ethibond sutures. Subscap was tagged and then peeled back and I was able to see humeral head. Fork was then used to separate the head from the remainder of the body. Darrach was then placed posteriorly on the backside of the glenoid as well as another Darrach anteriorly and this actually gave me nice exposure of the glenoid. I could see the polyethylene still well seated and worn on the backside. Curved osteotome was used to release the poly. The wear on the metal of the glenoid appeared much more significant through the scope and I could not see any just looking and inspecting by eyesight. Coming back to the proximal humerus, screw was removed from the body and the previously placed body was then removed. Rongeur was used to clean out some of the soft tissues and a little bit of the scar tissue that had formed within the recess. Coming back, I now had room to maneuver for the glenosphere and initially I had wanted to try a trial glenosphere, but was trying to seat this and maneuver, decision was made to place the eccentric 36 glenosphere. Glenosphere was called for and placed and then impacted in. Screw was placed and nice squeak was obtained. Attention was turned to the proximal humerus. Reamer guide was placed and adjusted and the outrigger was placed to make sure that the alignment was right in line with her forearm. This was also then tightened down and into place and the reamer was then run. Trial body for the humerus was then placed and she was trial reduced with a 0. With the 0, however, and the thickest portion of the poly inferiorly, with the arm coming anteriorly she would lever off on the backside of the socket and with just sitting she would lever her a bit forward. She was then trialed with the thicker portion of the poly towards the backside and this improved significantly, but still had just a little bit of liftoff. She was then trialed with a +3 polyethylene rotated as before and there was no more liftoff and she could be maneuvered quite easily in all directions and had excellent stability. Decision was made to go with these parts. Trials were removed and new small body was then bolted into place. Nice squeak was obtained with the screw after it was impacted downwards. Trial polyethylene was once again placed and adjusted, so that I knew which way the thicker portion would need to fit, so she once again had the same wonderful stability. New polyethylene was then impacted into place. She was reduced and had excellent motion and stability. Shoulder was copiously pulse lavaged. Subscap was repaired using interrupted #2 Ethibond sutures and a running Ethibond was placed as well. With full external rotation, sutures pulled, but did not pop and she looked to have an excellent repair. Wound was again copiously pulse lavaged and where I come through what I presumed to be the deltopectoral interval was tagged with 2- 0 Vicryl. Subcutaneous tissues were reapproximated using 2-0 Vicryl. Skin was closed using running PDS. Sterile dressing and a sling were applied in the OR. The patient was then extubated in the OR and was stable on transfer to the recovery room. [id number]/[facility] #: [id number] MICHELLE
[2019-07-26] MEDS ORDERED: Gabapentin CAP(*) 300 MG PO SCH (21:00)
[2019-07-27] MEDS: oxyCODONE/Acetamin 5/325 MG* TAB PO PRN ×3 (00:50→10:57)
[2019-07-27] MEDS: Acetaminophen TAB* 325 MG PO SCH ×2 (03:20→09:17)
[2019-07-27] MEDS: Clindamycin 600 MG IVPREMIX(* 600 MG/50 ML SDV IV SCH ×2 (03:59→11:00)
[2019-07-27 06:51] LABS: Hematocrit 35 % (35-47); Hemoglobin 11.7 g/dL (12.0-16.0)
[2019-07-27 07:03] LABS: BUN/Creatinine Ratio 23.3 (8-20); Calcium 8.7 mg/dL (8.6-10.3); EGFR African American 101.3 (>60); EGFR Non-African American 83.7 (>60); Potassium 4.4 mmol/L (3.5-5.0)
[2019-07-27] MEDS ORDERED: Aspirin EC TAB* 325 MG PO SCH (09:00)
[2019-07-27] MEDS ORDERED: Lisinopril TAB* 5 MG PO SCH (09:00)
[2019-07-27] MEDS ORDERED: Citalopram TAB* 20 MG PO SCH (09:00)
[2019-07-27] MEDS ORDERED: Pantoprazole TAB * 40 MG TAB PO SCH (09:00)
[2019-07-27] MEDS ORDERED: Cetirizine* 10 MG TAB PO SCH (09:00)
[2019-07-27] MEDS ORDERED: Vitamin THERAPEUTIC TAB PO SCH (09:00)
[2019-07-27] MEDS ORDERED: amLODIPine TAB* 5 MG PO SCH (09:00)
[2019-07-27] MEDS: Docusate CAP* 100 MG PO SCH (09:21)
[2019-07-27] MEDS: celeCOXIB CAP* 200 MG PO SCH (09:22)
[2019-07-27] MEDS: Magnesium Hydroxide LIQ* 30 ML UDC PO SCH (09:23)
--- NOTE | 2019-07-27 11:33 | PN ---
Progress Note - Progress Note Date of Service: 07/27/19 SOAP: Subjective: []Pt seen at bedside. She feels well, her pain is well controlled. She desires DC home. Denies CP, SOB, dizziness, nausea. Objective: []Gen: Appears well, NAD RUE: Dressing CDI, sling and cryo cuff in place. Flexion and extension at elbow , wrist and digits intact. okay, finger cross, thumbs up intact. Sensation intact to light touch throughout RUE. Cap refill less than two seconds distally , radial pulse 2+. Calves supple and nontender without without erythema, edema or palpable cords Assessment: []revision right reverse total shoulder arthroplasty Plan: []RUE limited WB - no heavier than a cup of coffee Okay for FF no higher than 90 degrees, no abd or ER DC home today Vital Signs Temp 98.8 F 07/27/19 07:27 Pulse 75 07/27/19 07:27 Resp 20 07/27/19 10:57 BP 138/67 07/27/19 07:27 Pulse Ox 92 07/27/19 07:27 Intake & Output 07/26/19 07/27/19 07/27/19 18:59 06:59 18:59 Intake Total 2940 1824 Output Total 950 1000 900 Balance 1989 824 -900 Weight 275 lb Intake: IV Fluids 2300 974 LR 2300 974 IVPB 50 ABX - CLINDAMYCIN 50 Oral 640 800 Output: Urine 1000 900 Castano 800 Estimated Blood Loss 150 Laboratory Last Values Hgb 11.7 g/dL (12.0-16.0) L 07/27/19 06:24 Hct 35 % (35-47) 07/27/19 06:24 Sodium 134 mmol/L (135-145) L 07/27/19 06:24 Potassium 4.4 mmol/L (3.5-5.0) 07/27/19 06:24 Chloride 102 mmol/L (101-111) 07/27/19 06:24 Carbon Dioxide 25 mmol/L (22-32) 07/27/19 06:24 Anion Gap 7 mmol/L (2-11) 07/27/19 06:24 BUN 17 mg/dL (6-24) 07/27/19 06:24 Creatinine 0.73 mg/dL (0.51-0.95) 07/27/19 06:24 Est GFR ( Amer) 101.3 (>60) 07/27/19 06:24 Est GFR (Non-Af Amer) 83.7 (>60) 07/27/19 06:24 BUN/Creatinine Ratio 23.3 (8-20) H 07/27/19 06:24 Glucose 121 mg/dL (70-100) H 07/27/19 06:24 Calcium 8.7 mg/dL (8.6-10.3) 07/27/19 06:24
--- NOTE | 2019-07-27 11:33 | DS ---
Orthopedic Discharge Summary - Discharge Summary Date of Admission:07/26/19 Date of Discharge: 07/27/19 Date of Surgery: 07/26/19 Attending Orthopedic Provider: Dr Montilla Pre-operative Diagnosis: failed right total shoulder arthroplasty Operative Procedure: revision reverse right shoulder arthroplasty Disposition of Patient: home Condition of Patient: stable History: DIMITRI BECERRIL is a 54 year old F with increasingly severe right shoulder pain. Patient has failed conservative management and has elected to undergo a right total shoulder replacement Hospital Course: DIMITRI was admitted to [facility] on 07/26/19. Patient underwent a revision right total shoulder arthroplasty without complication followed by a brief recovery in PACU and transfer to the Short Stay Surgical Unit in stable condition. physical therapy and occupational therapy also participated in this patients care. Post-op day 1: patient was alert and in no acute distress. Dressing was clean, dry and intact. Elbow, wrist and digit f/e intact, NVI distally. Patient was deemed to be medically and orthopedically stable for discharge. Physical therapy goals were met. Home Medications Medication Instructions Recorded Confirmed Type Bioflavonoid Products [Eloise-C] 1 tab PO QAM 04/18/17 07/26/19 History Citalopram TAB* [Celexa TAB*] 20 mg PO QAM 04/18/17 07/26/19 History Lisinopril TAB* [Prinivil TAB 5 5 mg PO QAM 04/18/17 07/26/19 History MG*] [place]-3/Dha/Epa/Fish Oil [Fish Oil 1,000 mg PO QAM 04/18/17 07/26/19 History 1,000 mg Softgel] Pantoprazole Sodium 40 mg PO QAM 04/18/17 07/26/19 History amLODIPine TAB* [Norvasc 5 mg TAB*] 10 mg PO QAM 04/18/17 07/26/19 History celeCOXIB CAP* [Celebrex CAP*] 200 mg PO BID 04/18/17 07/26/19 History Atorvastatin* [Lipitor 20 MG*] 20 mg PO QPM 07/20/19 07/26/19 History Calcium Citrate/Vitamin D2 500 mg PO QAM 07/20/19 07/26/19 History [Calcium with Vit D Tablet] Cetirizine* [ZyrTEC 10 MG TAB*] 10 mg PO QAM 07/20/19 07/26/19 History Gabapentin CAP(*) [Neurontin 300 300 mg PO BEDTIME 07/20/19 07/26/19 History CAP(*)] Glucosamine Sulfate Dipot Chlr 1,500 mg PO BID 07/20/19 07/26/19 History [Glucosamine] Acetaminophen TAB* [Tylenol TAB*] 975 mg PO Q8H tab 07/27/19 Rx Docusate CAP* [Colace Cap*] 100 mg PO BID PRN #90 cap 07/27/19 Rx oxyCODONE/Acetamin 5/325 MG* 1 tab PO Q4H PRN tab MDD 8 07/27/19 Rx [Percocet 5/325 TAB*] oxyCODONE/Acetamin 5/325 MG* 2 tab PO Q4H PRN #56 tab MDD 8 07/27/19 Rx [Percocet 5/325 TAB*] Shoulder restrictions: very limited weight bearing to operative arm, lift nothing heavier than a cup of coffee. Able to remove from sling for showering POD #3, pendulum exercises as shown by PT, no reaching out to the side. Okay to reach forward no higher than shoulder level. Continue physical therapy and occupational therapy exercises as shown. Wound Care: OK to shower, no bathing/ swimming/ submerging wound. Use gentle soap, pat dry. Cover with gauze, paper tape. Call Orthopedic office for increased drainage, redness, increased pain, or fever. Go to ER with shortness of breath or chest pain. Diet: Regular diet, increase fluids and fiber to prevent constipation. Continue to use stool softeners, call office if no bowel motion within 48 hours. - Sutures to be removed in 10-14 days, call for appt - Pain control: Percocet 5/325 1-2 tabs every 4-6 hours as needed for pain, max 8 tabs per day. Hold for sedation. Wean off as soon as pain allows. ---Please note that percocet contains tylenol (acetaminophen). Maximum daily dose of tylenol is 4000 mg from all sources. - Antibiotics required prior to any dental work Please call our office with any questions or concerns ([phone]) RX ro [facility]
[2019-07-27 11:55] VITALS: BP 148/70
[2019-07-28] MEDS ORDERED: Bisacodyl SUPP* 10 MG SUPP PR PRN (15:16)
== END 2019-07-27 12:15 | disposition home or self-care (01) | DRG 483 ==
LOC: AA 08:54 → SSU 17:10
PROVIDERS: ADMIT Orthopaedic Surgery; ATTEND Orthopaedic Surgery
PROC: 0RPJ0JZ Removal of Synthetic Substitute from Right Shoulder Joint, Open Approach (ICD-10-PCS; 2019-07-26)
PROC: 0RRJ0JZ Replacement of Right Shoulder Joint with Synthetic Substitute, Open Approach (ICD-10-PCS; principal; 2019-07-26 10:45)
DX: T84.028A Dislocation of other internal joint prosthesis, initial encounter (principal); I10 Essential (primary) hypertension; K21.9 Gastro-esophageal reflux disease without esophagitis; E78.5 Hyperlipidemia, unspecified; M41.9 Scoliosis, unspecified; R73.03 Prediabetes; F32.9 Major depressive disorder, single episode, unspecified; Y79.2 Prosthetic and other implants, materials and accessory orthopedic devices associated with adverse incidents; Y92.9 Unspecified place or not applicable; Z82.49 Family history of ischemic heart disease and other diseases of the circulatory system; Z68.42 Body mass index [BMI] 45.0-49.9, adult; Z83.3 Family history of diabetes mellitus; Z80.49 Family history of malignant neoplasm of other genital organs; Z82.5 Family history of asthma and other chronic lower respiratory diseases; Z88.0 Allergy status to penicillin
CPT/HCPCS: 36415; 80048; 81025; 85014; 85018; A9270-GY; C1713; C1776; J1100; J2250; J2405; J2704; J2795; J3010

== ENCOUNTER 2024-10-08 09:52 | Observation (INO) ==
[2024-10-08 10:53] LABS: ABS Lymphocytes 1.5 10^3/uL (1.0-4.8); ABS Monocytes 1.1 10^3/uL (0.0-0.9); ABS Neutrophils 6.5 10^3/uL (1.5-7.6); ABS Nucleated RBC 0.01 10^3/ul; Eosinophil % 0.1 %; Hematocrit 34.7 % (35-45); Lymphocyte % 16.4 %; Mean Corpuscular Hemoglobin 29.2 pg (27-33); Mean Corpuscular Hgb Conc 34.6 g/dL (31-36); Mean Corpuscular Volume 84.1 fL (80-97); Mean Platelet Volume 8.1 fL (7.5-11.2); Nucleated Red Blood Cells % 0.1 %/100WBC (0.0-0.8); Platelet Count 159 10^3/uL (150-450); Red Blood Count 4.13 10^6/uL (3.63-4.92); Red Cell Distribution Width 13.5 % (12-17); White Blood Count 9.2 10^3/uL (3.8-11.8)
[2024-10-08 10:58] LABS: INR 1.15 (0.85-1.14)
[2024-10-08] MEDS: Lactated Ringers 1000 ml BAG 1,000 ML IV ONE (10:58)
[2024-10-08 11:40] LABS: Albumin 3.4 g/dL (3.2-5.2); Albumin/Globulin Ratio 1.2 (1-3); C Reactive Protein 178.75 mg/L (<8.01); Calcium 8.1 mg/dL (8.6-10.3); Creatinine, Serum 0.7 mg/dL (0.51-0.95); Globulin 2.9 g/dL (2-4); Potassium 3.6 mmol/L (3.5-5.0); Total Bilirubin 1.4 mg/dL (0.2-1.0); Total Protein 6.3 g/dL (6.4-8.9); eGFR CKD-EPI 100.8 (>60)
[2024-10-08] MEDS: Iohexol 350 (CONTRAST) 500 ML MDV IV ONE (12:40)
[2024-10-08] MEDS: cefTRIAXone 1 gm/50 mL D5W 1 GM/50 ML BAG IV ONE (13:51)
[2024-10-08] MEDS: Azithromycin 500 mg/250 ml NS 500 MG/250 ML BAG IVPB ONE (15:05)
[2024-10-08 15:27] LABS: Urine Appearance Turbid; Urine Bilirubin Negative (Negative); Urine Blood Negative (Negative); Urine Color Yellow; Urine Glucose Negative (Negative); Urine Ketones Negative (Negative); Urine Nitrite Negative (Negative); Urine Protein 1+ (>=30 mg/dL) (Negative); Urine Specific Gravity 1.016 (1.002-1.030); Urine Urobilinogen 1+ (Negative)
[2024-10-08 15:32] LABS: Urine Bacteria 3+ /HPF (Absent); Urine Red Blood Cell 1+(3-5/hpf) /HPF (0-Trace); Urine Squamous Epithelial Cell Present /HPF (Absent); Urine White Blood Cell 3+(>20/hpf) /HPF (0-Trace)
[2024-10-09 06:40] LABS: Hematocrit 33.1 % (35-45); Hemoglobin 11.4 g/dL (11.5-14.3); Mean Corpuscular Hemoglobin 29.3 pg (27-33); Mean Corpuscular Hgb Conc 34.4 g/dL (31-36); Mean Corpuscular Volume 85.1 fL (80-97); Mean Platelet Volume 8.2 fL (7.5-11.2); Platelet Count 168 10^3/uL (150-450); Red Blood Count 3.89 10^6/uL (3.63-4.92); Red Cell Distribution Width 13.8 % (12-17)
[2024-10-09 06:50] LABS: Albumin 3.1 g/dL (3.2-5.2); Albumin/Globulin Ratio 1.1 (1-3); Calcium 7.8 mg/dL (8.6-10.3); Creatinine, Serum 0.6 mg/dL (0.51-0.95); Globulin 2.8 g/dL (2-4); Magnesium 1.8 mg/dL (1.9-2.7); Potassium 3.3 mmol/L (3.5-5.0); Total Protein 5.9 g/dL (6.4-8.9); eGFR CKD-EPI 104.6 (>60)
[2024-10-09] MEDS: Magnesium Sulfate IV 1GM/100ML 1 GM/100 ML BAG IV ONE (08:35)
[2024-10-09] MEDS: Potassium Chlor 20 meq TAB.ER PO ONE (08:37)
[2024-10-09 08:56] LABS: ABS Lymphocytes 1.3 10^3/uL (1.0-4.8); ABS Monocytes 0.8 10^3/uL (0.0-0.9); ABS Neutrophils 4.8 10^3/uL (1.5-7.6); ABS Nucleated RBC 0.01 10^3/ul; Eosinophil % 0.1 %; Lymphocyte % 18.4 %; Nucleated Red Blood Cells % 0.2 %/100WBC (0.0-0.8); RBC Morphology Normal (Normal)
[2024-10-09] MEDS: cefTRIAXone 1 gm/50 mL D5W 1 GM/50 ML BAG IV SCH (10:18)
[2024-10-09 13:16] VITALS: BP 136/76
[2024-10-12 08:09] LABS: Anaplasma phagocytophilum Positive (Negative); B. miyamotoi PCR, B Negative (Negative); Babesia divergens/MO-1 Negative (Negative); Babesia ducani Negative (Negative); Ehrlichia chaffeensis Negative (Negative); Ehrlichia ewingii/canis Negative (Negative); Ehrlichia muris eauclairensis Negative (Negative)
[2024-10-12 14:16] LABS: IgG Immunoblot Negative (Negative); IgM Immunoblot Negative (Negative)
== END 2024-10-09 14:30 | disposition home or self-care (01) ==
LOC: ED 09:52 → EDHOLD 09:52 → MED 15:29
PROVIDERS: ADMIT Student in an Organized Health Care Education/Training Program; ATTEND Hospitalist